=== PATIENT | male | born 1995 | race Hispanic/Latino ===

== ENCOUNTER 2023-03-07 11:21 | Emergency (ER) | payer OTHER ==
[~2023-03-07] VITALS: Ht 172.7 cm; Wt 71.1 kg
[2023-03-07] MEDS ORDERED: KETOROLAC 60MG 2ML VIAL IM ONE (12:25)
[2023-03-07] MEDS ORDERED: CYCLOBENZAPRINE 5MG TABLET PO ONE (12:25)
[2023-03-07] MEDS ORDERED: CYCL-707 PO (13:39)
[2023-03-07 13:43] VITALS: BP 118/67
== END 2023-03-07 13:45 | disposition home or self-care (01) ==
LOC: M ED 11:21 → EDBD 11:21 → M ED 13:45
DX: M51.17 Intervertebral disc disorders with radiculopathy, lumbosacral region (principal); M51.26 Other intervertebral disc displacement, lumbar region; M51.36 Other intervertebral disc degeneration, lumbar region; M51.37 Other intervertebral disc degeneration, lumbosacral region; M46.96 Unspecified inflammatory spondylopathy, lumbar region; F10.10 Alcohol abuse, uncomplicated; Z79.899 Other long term (current) drug therapy
CPT/HCPCS: 72131; 96372; 99283; J1885